=== PATIENT | male | born 1960 | race Caucasian/White ===

== ENCOUNTER 2018-09-19 14:40 | Emergency (ER) | payer MEDICARE ==
[2018-09-19 14:49] VITALS: BP 127/77
[2018-09-19] MEDS ORDERED: KETOROLAC TROMETHAMINE INJ/PF 30 MG/1 ML SDV IV ONE (15:32)
--- NOTE | 2018-09-19 15:34 | ER Document Report ---
ED Medical Screen (RME) - General Chief Complaint: Abdominal Pain Stated Complaint: ABDOMINAL/SCROTUM PAIN Time Seen by Provider: 09/19/18 15:14 TRAVEL OUTSIDE OF THE [place] IN LAST 30 DAYS: No - Related Data Allergies/Adverse Reactions: ketamine Adverse Reaction (Verified 09/19/18 14:41) Past Medical History - Social History Frequency of alcohol use: None Drug Abuse: None Renal/ Medical History: Denies: Hx Peritoneal Dialysis Past Surgical History: Reports: Hx Genitourinary Surgery - X8 after a trauma, Hx Tonsillectomy Physical Exam - Vital signs Vitals: Temp Pulse Resp BP Pulse Ox 97.8 F 67 16 127/77 H 97 09/19/18 14:48 09/19/18 14:48 09/19/18 14:48 09/19/18 14:48 09/19/18 14:48 Course - Re-evaluation Re-evalutation: 09/19/18 15:32 This is a 58-year-old man who is undergone multiple pelvic surgeries in the past to repair a traumatic open book pelvis injury. This patient was seen and evaluated rapid medical screening examination fashion. He will require the reassessment and further evaluation with disposition determination by secondary provider. - Vital Signs Vital signs: Temp Pulse Resp BP Pulse Ox 97.8 F 67 16 127/77 H 97 09/19/18 14:48 09/19/18 14:48 09/19/18 14:48 09/19/18 14:48 09/19/18 14:48
[2018-09-19 16:08] LABS: ABSOLUTE BASOPHILS # (AUTO) 0.1 10^3/uL (0.0-0.2); ABSOLUTE EOSINOPHILS # (AUTO) 0.5 10^3/uL (0.0-0.6); ABSOLUTE LYMPHOCYTES (AUTO) 2.1 10^3/uL (0.5-4.7); ABSOLUTE MONOCYTES (AUTO) 0.8 10^3/uL (0.1-1.4); ABSOLUTE NEUT (AUTO) 5.4 10^3/uL (1.7-8.2); BASOPHILS % (AUTO) 0.7 % (0-2); EOSINOPHILS % (AUTO) 5.9 % (0-6); HEMATOCRIT 43.5 % (37.9-51.0); HEMOGLOBIN 14.8 g/dL (13.5-17.0); LYMPHOCYTES % (AUTO) 23.6 % (13-45); MEAN CORPUSCULAR HEMOGLOBIN 30.2 pg (27.0-33.4); MEAN CORPUSCULAR HGB CONC 34.1 g/dL (32.0-36.0); MEAN CORPUSCULAR VOLUME 89 fl (80-97); MONOCYTES % (AUTO) 8.8 % (3-13); PLATELET COUNT 254 10^3/uL (150-450); RED CELL DISTRIBUTION WIDTH 14.9 % (11.5-14.0); TOTAL CELLS COUNTED % (AUTO) 100 %; WHITE BLOOD COUNT 8.9 10^3/uL (4.0-10.5)
[2018-09-19] MEDS ORDERED: MORPHINE SULFATE 10 MG/ML INJ IV ONE ×2 (16:16→17:54)
[2018-09-19 16:18] LABS: APPEARANCE,URINE CLEAR; BILIRUBIN,URINE NEGATIVE (NEGATIVE); COLOR,URINE STRAW; GLUCOSE, URINE NEGATIVE (NEGATIVE); KETONES,URINE NEGATIVE (NEGATIVE); LEUKOCYTE ESTERASE,URINE NEGATIVE (NEGATIVE); NITRITE,URINE NEGATIVE (NEGATIVE); PROTEIN,URINE NEGATIVE (NEGATIVE); URINE SPECIFIC GRAVITY 1.006; UROBILINOGEN,URINE NEGATIVE mg/dL (<2.0)
--- NOTE | 2018-09-19 16:18 | ER Document Report ---
ED GI/ - General Mode of Arrival: Ambulatory Information source: Patient TRAVEL OUTSIDE OF THE [place] IN LAST 30 DAYS: No - HPI Patient complains to provider of: Dysuria, Groin pain Onset: Other - 2 weeks Timing/Duration: Persistent Quality of pain: Achy Pain Level: 3 Location: Pelvis Sexual history: Active Associated symptoms: Dysuria, Nausea. denies: Diarrhea, Urinary hesitancy, Urinary frequency, Urinary retention, Urinary urgency, Vomiting Exacerbated by: Other - Voiding Relieved by: Denies Similar symptoms previously: No Recently seen / treated by doctor: No <AMINAH MONTELONGO - Last Filed: 09/19/18 19:22> <BIJAN FERRIS - Last Filed: 09/20/18 00:22> - General Chief Complaint: Abdominal Pain Stated Complaint: ABDOMINAL/SCROTUM PAIN Time Seen by Provider: 09/19/18 15:14 Notes: Patient presents complaining of a 2-week history of right inguinal pain. Patient states that he does have some blood in his ejaculate. Patient denies any hematuria. Patient states that he does have some discomfort when he voids. Patient does report nausea. Patient denies any fever. Patient does report a history of previous pelvic fracture that required numerous surgeries on the pelvis 7 years ago. (AMINAH MONTELONGO) - Related Data Allergies/Adverse Reactions: ketamine Adverse Reaction (Verified 09/19/18 14:41) Past Medical History - General Information source: Patient - Social History Smoking Status: Never Smoker Frequency of alcohol use: None Drug Abuse: None Lives with: Spouse/Significant other Family History: Reviewed & Not Pertinent Patient has suicidal ideation: No Patient has homicidal ideation: No Endocrine Medical History: Reports: Hx Hypothyroidism Renal/ Medical History: Denies: Hx Peritoneal Dialysis Past Surgical History: Reports: Hx Genitourinary Surgery - X8 after a trauma, Hx Tonsillectomy <AMINAH MONTELONGO - Last Filed: 09/19/18 19:22> Review of Systems - Review of Systems Constitutional: No symptoms reported. denies: Fever EENT: No symptoms reported Cardiovascular: No symptoms reported. denies: Chest pain Respiratory: No symptoms reported. denies: Cough, Short of breath, Sputum Gastrointestinal: Abdominal pain - Right inguinal area, Nausea. denies: Vomiting Genitourinary: Dysuria, Other - Blood in ejaculate Male Genitourinary: No symptoms reported Musculoskeletal: No symptoms reported. denies: Back pain Skin: No symptoms reported Hematologic/Lymphatic: No symptoms reported Neurological/Psychological: No symptoms reported <AMINAH MONTELONGO - Last Filed: 09/19/18 19:22> Physical Exam - General General appearance: Appears well, Alert In distress: None - HEENT Head: Normocephalic, Atraumatic Eyes: Normal Conjunctiva: Normal Nasal: Normal Mouth/Lips: Normal Mucous membranes: Normal Pharynx: Normal Neck: Normal, Supple. No: Lymphadenopathy - Respiratory Respiratory status: No respiratory distress Chest status: Nontender Breath sounds: Normal. No: Rales, Rhonchi, Stridor, Wheezing Chest palpation: Normal - Cardiovascular Rhythm: Regular Heart sounds: S1 appreciated, S2 appreciated Murmur: No - Abdominal Inspection: Obese Distension: No distension Bowel sounds: Normal Tenderness: Tender - Right inguinal tenderness Organomegaly: No organomegaly - Genitourinary Inspection: Normal. No: Blood at meatus Tenderness: Other - tenderness to R inguinal area. No: Testicle tender, Epididymis tender Scrotum: Normal. No: Swelling, Redness, Hot to touch - Back Back: Normal, Nontender. No: CVA tenderness - Extremities General upper extremity: Normal inspection, Nontender, Normal strength General lower extremity: Normal inspection, Nontender, Normal strength - Neurological Neuro grossly intact: Yes Cognition: Normal [place] Coma Scale Eye Opening: Spontaneous [place] Coma Scale Verbal: Oriented [place] Coma Scale Motor: Obeys Commands Rocio Coma Scale Total: 15 - Psychological Associated symptoms: Normal affect, Normal mood - Skin Skin Temperature: Warm Skin Moisture: Dry Skin Color: Normal <AMINAH MONTELONGO - Last Filed: 09/19/18 19:22> - Vital signs Vitals: Temp Pulse Resp BP Pulse Ox 97.8 F 67 16 127/77 H 97 09/19/18 14:48 09/19/18 14:48 09/19/18 14:48 09/19/18 14:48 09/19/18 14:48 Course - Laboratory Result Diagrams: 09/19/18 15:48 09/19/18 15:48 - Diagnostic Test Radiology reviewed: Reports reviewed <AMINAH MONTELONGO - Last Filed: 09/19/18 19:22> - Laboratory Result Diagrams: 09/19/18 15:48 09/19/18 15:48 <BIJAN FERRIS - Last Filed: 09/20/18 00:22> - Re-evaluation Re-evalutation: 09/19/18 17:[address] Ferris regarding patient presentation and exam findings. Discussed results of patient's CT scan. Recommends follow-up with urology for further evaluation. No additional testing advised at this time. (AMINAH MONTELONGO) Abdomen/Pelvis CT 09/19/18 15:31 IMPRESSION: 1. No acute abdominopelvic abnormality is suggested. 2. Chronic appearing pelvic findings. Detailed as above. Related to previous trauma. 09/20/18 00:21 Patient was evaluated by myself and a fast exam was performed which was negative for free fluid in the abdomen. CT of the abdomen and pelvis were obtained as well as a scrotal ultrasound. Findings discussed with trauma surgery who recommend urology follow-up. (BIJAN FERRIS) - Vital Signs Vital signs: Temp Pulse Resp BP Pulse Ox 97.8 F 67 16 127/77 H 97 09/19/18 14:48 09/19/18 14:48 09/19/18 14:48 09/19/18 14:48 09/19/18 14:48 - Laboratory Laboratory results interpreted by me: 09/19/18 09/19/18 15:48 15:48 RDW 14.9 H Urine Blood MODERATE H 09/19/18 17:37 Labs- Entire Visit 09/19/18 09/19/18 09/19/18 15:48 15:48 15:48 WBC 8.9 RBC 4.90 Hgb 14.8 Hct 43.5 MCV 89 MCH 30.2 MCHC 34.1 RDW 14.9 H Plt Count 254 Seg Neutrophils % 61.0 Lymphocytes % 23.6 Monocytes % 8.8 Eosinophils % 5.9 Basophils % 0.7 Absolute Neutrophils 5.4 Absolute Lymphocytes 2.1 Absolute Monocytes 0.8 Absolute Eosinophils 0.5 Absolute Basophils 0.1 Sodium 138.4 Potassium 4.8 Chloride 104 Carbon Dioxide 27 Anion Gap 7 BUN 11 Creatinine 0.91 Est GFR ( Amer) > 60 Est GFR (Non-Af Amer) > 60 Glucose 98 Calcium 9.6 Total Bilirubin 0.4 Direct Bilirubin 0.2 Neonat Total Bilirubin Not Reportable Neonat Direct Bilirubin Not Reportable Neonat Indirect Bili Not Reportable AST 36 ALT 31 Alkaline Phosphatase 69 Total Protein 7.5 Albumin 4.3 Lipase 108.5 Urine Color STRAW Urine Appearance CLEAR Urine pH 6.0 Ur Specific [place] 1.006 Urine Protein NEGATIVE Urine Glucose (UA) NEGATIVE Urine Ketones NEGATIVE Urine Blood MODERATE H Urine Nitrite NEGATIVE Urine Bilirubin NEGATIVE Urine Urobilinogen NEGATIVE Ur Leukocyte Esterase NEGATIVE Urine WBC (Auto) 2 Urine RBC (Auto) 3 Urine Mucus (Auto) RARE Urine Ascorbic Acid NEGATIVE Blood Type Antibody Screen 09/19/18 15:48 WBC RBC Hgb Hct MCV MCH MCHC RDW Plt Count Seg Neutrophils % Lymphocytes % Monocytes % Eosinophils % Basophils % Absolute Neutrophils Absolute Lymphocytes Absolute Monocytes Absolute Eosinophils Absolute Basophils Sodium Potassium Chloride Carbon Dioxide Anion Gap BUN Creatinine Est GFR ( Amer) Est GFR (Non-Af Amer) Glucose Calcium Total Bilirubin Direct Bilirubin Neonat Total Bilirubin Neonat Direct Bilirubin Neonat Indirect Bili AST ALT Alkaline Phosphatase Total Protein Albumin Lipase Urine Color Urine Appearance Urine pH Ur Specific [place] Urine Protein Urine Glucose (UA) Urine Ketones Urine Blood Urine Nitrite Urine Bilirubin Urine Urobilinogen Ur Leukocyte Esterase Urine WBC (Auto) Urine RBC (Auto) Urine Mucus (Auto) Urine Ascorbic Acid Blood Type O POSITIVE Antibody Screen NEGATIVE (AMINAH MONTELONGO) Critical Care Note - Critical Care Note Total time excluding time spent on procedures (mins): 35 - Minutes of critical care time spent in direct contact evaluating and reevaluating the patient, treating symptoms, reviewing labs and studies and speaking with family and consultants excluding any procedures <BIJAN FERRIS E - Last Filed: 09/20/18 00:22> Discharge <AMINAH MONTELONGO - Last Filed: 09/19/18 19:22> <BIJAN FERRIS E - Last Filed: 09/20/18 00:22> - Discharge Clinical Impression: Bladder hernia in male Hematuria Qualifiers: Hematuria type: unspecified type Qualified Code(s): R31.9 - Hematuria, unspecified Condition: Stable Disposition: HOME, SELF-CARE Instructions: Hematuria ([facility]), Hernia ([facility]) Additional Instructions: Return immediately for any new or worsening symptoms Followup with your primary care provider, call tomorrow to make a followup appointment Your CT scan demonstrates a hernia of a portion of the bladder through the pubic symphysis. This should be further evaluated by a urologist. Call Thursday for an appointment. [facility] Directions Address: [address] [place] [address], [place] [address] Prescriptions: Tramadol HCl [Ultram 50 mg Tablet] 50 mg PO ASDIR PRN #15 tablet PRN Reason:
[2018-09-19 16:26] LABS: ALANINE AMINOTRANSFERASE 31 U/L (21-72); ALBUMIN 4.3 g/dL (3.5-5.0); ALKALINE PHOSPHATASE 69 U/L (38-126); ANION GAP 7 (5-19); ASPARTATE AMINO TRANSFERASE 36 U/L (17-59); BILIRUBIN,DIRECT 0.2 mg/dL (0.0-0.4); BILIRUBIN,TOTAL 0.4 mg/dL (0.2-1.3); BLOOD UREA NITROGEN 11 mg/dL (7-20); CALCIUM 9.6 mg/dL (8.4-10.2); CARBON DIOXIDE 27 mmol/L (22-30); CHLORIDE 104 mmol/L (98-107); GLUCOSE 98 mg/dL (75-110); LIPASE 108.5 U/L (23-300); POTASSIUM 4.8 mmol/L (3.6-5.0); SODIUM 138.4 mmol/L (137-145); TOTAL PROTEIN 7.5 g/dL (6.3-8.2)
--- NOTE | 2018-09-19 17:27 | RADIOLOGY REPORT (SQ) ---
EXAM DESCRIPTION: CT ABD/PELVIS WITH IV ONLY COMPLETED DATE/TIME: 09/19/2018 5:05 pm REASON FOR STUDY: multiple pelvic surgeries, pain in left inguinal COMPARISON: None. TECHNIQUE: CT scan of the abdomen and pelvis performed using helical scanning technique with dynamic intravenous contrast injection. No oral contrast. Images reviewed with lung, soft tissue, and bone windows. Reconstructed coronal and sagittal MPR images reviewed. Delayed images for evaluation of the urinary system also acquired. All images stored on PACS. All CT scanners at this facility use dose modulation, iterative reconstruction, and/or weight based d osing when appropriate to reduce radiation dose to as low as reasonably achievable (ALARA). [facility]: Dose Right [facility]: CareDose [facility]: Dose Right [facility]: Teradose 4D [facility]: [place] CONTRAST TYPE AND DOSE: contrast/concentration: Isovue 350.00 mg/ml; Total Contrast Delivered: 100.0 ml; Total Saline Delivered: 72.0 ml RENAL FUNCTION: Creatinine 0.91 RADIATION DOSE: CT Rad equipment meets quality standard of care and radiation dose reduction techniq ues were employed. CTDIvol: 16.4 - 19.7 mGy. DLP: 2180 mGy-cm.. LIMITATIONS: None. FINDINGS: LOWER CHEST: No significant findings. No nodules or infiltrates. LIVER: Fatty parenchyma. No mass or duct dilatation. SPLEEN: Normal size. No focal lesions. PANCREAS: No masses. No significant calcifications. No adjacent inflammation or peripancreatic fluid collections. Pancreatic duct not dilated. GALLBLADDER: No identified stones by CT criteria. No inflammatory changes to suggest cholecystitis. ADRENAL GLANDS: No significant masses or asymmetry. RIGHT KIDNEY AND URETER: No solid masses. No significant calcification. No hydronephrosis or hydroure ter. LEFT KIDNEY AND URETER: No solid masses. No significant calcification. No hydronephrosis or hydrouret er. AORTA AND VESSELS: Atherosclerotic aorta without aneurysm or dissection. Generally patent major karine rial and venous structures. RETROPERITONEUM: No retroperitoneal adenopathy, hemorrhage or masses. BOWEL AND PERITONEAL CAVITY: No masses or inflammatory changes. No free fluid or peritoneal masses. APPENDIX: Normal. PELVIS: Evidence of significant previous pelvic trauma with fractures about the symphysis pubis and m ild pubis widening. Slight herniation of the anterior bladder into the widened symphysis. Density w ith marked artifact in the posterior bladder, probable metallic fragments from previous injury. Yasmin elate with history. There are clearly other regional metallic foreign bodies as well. Some of this may be postoperative related to vascular coils. No evidence, however, of pelvic free fluid or mass o r inguinal hernia. ABDOMINAL WALL: No masses. No hernias. BONES: As above. No suggestion of acute fracture. OTHER: No other significant finding. IMPRESSION: 1. No acute abdominopelvic abnormality is suggested. 2. Chronic appearing pelvic findings. Detailed as above. Related to previous trauma. TECHNICAL DOCUMENTATION: JOB ID: [id number] Quality ID # [id number]: Final reports with documentation of one or more dose reduction techniques (e.g., Au tomated exposure control, adjustment of the mA and/or kV according to patient size, use of iterative reconstruction technique) 2010 [employer]- All Rights Reserved Reading location - IP/workstation name: [email or web address]
== END 2018-09-19 19:11 | disposition home or self-care (01) ==
LOC: ER 14:40
DX: N32.89 Other specified disorders of bladder (principal); R31.9 Hematuria, unspecified; R36.1 Hematospermia; R30.0 Dysuria; R11.0 Nausea; Z87.81 Personal history of (healed) traumatic fracture; Z98.890 Other specified postprocedural states
CPT/HCPCS: 96376; 99285; 96374; 96375; 86900; 86901; 36415; 87086; 86850; 83690; 85025; 80053; 81001; 74177; J1885; J2270